=== PATIENT | male | born 1960 | race Hispanic/Latino ===

== ENCOUNTER 2021-04-14 10:53 | Emergency (ER) | payer BC ==
--- NOTE | 2021-04-14 11:17 | Emergency Department Report ---
HPI - General Time Seen by Provider: 04/14/21 11:03 - HPI HPI: The patient is a 60-year-old male sent from an alcohol detox facility on 1012 for "uncontrolled psychosis and delusional." The patient appears to be elusive when asked questions and states he does not know why he is at the detox facility. The patient states he does not know why he was sent to the emergency department. When questioned about the 1012 he stated he had uncontrolled psychosis and was delusional the patient states he does not know what they are referring to. Patient states he feels good and denies suicidal homicidal ideation. Patient denies auditory visual hallucinations ED Past Medical Hx - Past Medical History Hx Psychiatric Treatment: Yes (Bipolar disorder) - Surgical History Additional Surgical History: Herniorrhaphy - Family History Family history: no significant - Social History Smoking Status: Current Every Day Smoker (1 pack/day) Substance Use Type: None (Denies illicit drug use), Alcohol (History) ED Review of Systems ROS: Stated complaint: AUDITORY/HALLUNCINATION Other details as noted in HPI Constitutional: no symptoms reported Eyes: denies: eye pain ENT: denies: throat pain Respiratory: no symptoms reported Cardiovascular: denies: chest pain Endocrine: no symptoms reported Gastrointestinal: denies: abdominal pain Genitourinary: denies: dysuria Musculoskeletal: denies: back pain Neurological: denies: headache Psychiatric: denies: auditory hallucinations, visual hallucinations, homicidal thoughts, suicidal thoughts Physical Exam - Physical Exam Vital Signs: Vital Signs 04/14/21 11:56 Temperature 97.9 F Pulse Rate 87 Respiratory 18 Rate Blood Pressure 133/76 [Right] O2 Sat by Pulse 98 Oximetry Physical Exam: GENERAL: The patient is well-developed well-nourished male sitting in chair not appearing to be in acute distress HEENT: Normocephalic. Atraumatic. Extraocular motions are intact. Patient has moist mucous membranes. NECK: Supple. Trachea midline CHEST/LUNGS: Clear to auscultation. There is no respiratory distress noted. HEART/CARDIOVASCULAR: Regular. There is no tachycardia. There is no gallop rub or murmur. ABDOMEN: Abdomen is soft, nontender. Patient has normal bowel sounds. There is no abdominal distention. SKIN: There is no rash. There is no edema. There is no diaphoresis. NEURO: The patient is awake, alert, and oriented. The patient is cooperative. The patient has no focal neurologic deficits. The patient has normal speech. GCS 15 MUSCULOSKELETAL: There is no evidence of acute injury. ED Medical Decision Making - Lab Data Result diagrams: 04/14/21 11:39 04/14/21 11:39 Laboratory Tests 04/14/21 04/14/21 04/14/21 11:39 11:39 11:39 WBC 9.4 RBC 4.82 Hgb 15.6 H Hct 46.2 H MCV 96 H MCH 32 MCHC 34 RDW 14.2 Plt Count 152 Lymph % (Auto) 38.9 H [place] % (Auto) 7.3 Eos % (Auto) 0.7 Baso % (Auto) 0.9 Lymph # (Auto) 3.7 [place] # (Auto) 0.7 Eos # (Auto) 0.1 Baso # (Auto) 0.1 Seg Neutrophils % 52.2 Seg Neutrophils # 4.9 Sodium 141 Potassium 4.6 Chloride 106.2 Carbon Dioxide 22 Anion Gap 17 BUN 16 Creatinine 0.8 Estimated GFR > 60 BUN/Creatinine Ratio 20 Glucose 93 Calcium 9.5 Total Bilirubin 0.20 AST 23 ALT 14 Alkaline Phosphatase 74 Total Protein 7.1 Albumin 3.9 Albumin/Globulin Ratio 1.2 Salicylates < 0.3 L Acetaminophen Plasma/Serum Alcohol 04/14/21 04/14/21 11:39 11:39 WBC RBC Hgb Hct MCV MCH MCHC RDW Plt Count Lymph % (Auto) [place] % (Auto) Eos % (Auto) Baso % (Auto) Lymph # (Auto) [place] # (Auto) Eos # (Auto) Baso # (Auto) Seg Neutrophils % Seg Neutrophils # Sodium Potassium Chloride Carbon Dioxide Anion Gap BUN Creatinine Estimated GFR BUN/Creatinine Ratio Glucose Calcium Total Bilirubin AST ALT Alkaline Phosphatase Total Protein Albumin Albumin/Globulin Ratio Salicylates Acetaminophen 5.0 L Plasma/Serum Alcohol 0.01 - Differential Diagnosis Adjustment disorder, mood disorder unspecified Critical care attestation.: If time is entered above; I have spent that time in minutes in the direct care of this critically ill patient, excluding procedure time. ED Disposition Clinical Impression: Bipolar disorder Disposition: 01 HOME / SELF CARE / HOMELESS Is pt being admited?: No Does the pt Need Aspirin: No Condition: Stable Instructions: Santa Additional Instructions: Return to the emergency department should you develop worsening symptoms, inability to tolerate food or liquids, high fever or any other concerns Referrals: [facility] [Outside] - 3-5 Days Time of Disposition: 13:31
[2021-04-14 11:59] VITALS: BP 133/76
[2021-04-14 13:11] LABS: Basophils # (Auto) 0.1 K/mm3 (0.0-0.1); Basophils % (Auto) 0.9 % (0.0-1.8); Eosinophils # (Auto) 0.1 K/mm3 (0.0-0.4); Eosinophils % (Auto) 0.7 % (0.0-4.3); Hematocrit 46.2 % (35.5-45.6); Hemoglobin 15.6 gm/dl (11.8-15.2); Lymphocytes # (Auto) 3.7 K/mm3 (1.2-5.4); Lymphocytes % (Auto) 38.9 % (13.4-35.0); Mean Corpuscular HGB Conc 34 % (32-34); Mean Corpuscular Volume 96 fl (84-94); Monocytes # (Auto) 0.7 K/mm3 (0.0-0.8); Monocytes % (Auto) 7.3 % (0.0-7.3); Platelet Count 152 K/mm3 (140-440); Red Blood Count 4.82 M/mm3 (3.65-5.03); Red Cell Distribution Width 14.2 % (13.2-15.2)
[2021-04-14 13:26] LABS: Alanine Aminotransferase 14 units/L (7-56); Albumin 3.9 g/dL (3.9-5); BUN/Creatinine Ratio 20; Blood Urea Nitrogen 16 mg/dL (9-20); Calcium 9.5 mg/dL (8.4-10.2); Hemolysis Index 80
== END 2021-04-14 13:25 | disposition home or self-care (01) ==
LOC: ED 10:53
DX: F31.9 Bipolar disorder, unspecified (principal); F17.200 Nicotine dependence, unspecified, uncomplicated
CPT/HCPCS: 36415; 80053; 80320; 85025; 99284; G0480